=== PATIENT | female | born 1950 | race Caucasian/White ===

== ENCOUNTER 2021-08-16 06:37 | Day surgery (SDC) | payer MEDICARE, BC ==
[~2021-08-16] VITALS: Ht 165.1 cm; Wt 89.6 kg
[2021-08-16 07:20] VITALS: BP 116/49
[2021-08-16] MEDS ORDERED: normal saline 1000ml 1,000 ML IV PRN (07:20)
[2021-08-16 07:30] VITALS: BP 116/49
[2021-08-16] MEDS ORDERED: LISI10TA27 PO (07:58)
[2021-08-16] MEDS ORDERED: ATOR40TA72 PO (07:58)
[2021-08-16] MEDS ORDERED: METF-1203 PO (07:58)
[2021-08-16] MEDS ORDERED: GLIP10TA21 PO (07:58)
[2021-08-16] MEDS ORDERED: CARV3.1289 PO (07:58)
[2021-08-16] MEDS ORDERED: CLOP75TA34 PO (08:00)
[2021-08-16] MEDS ORDERED: ASPI-1265 PO (08:00)
[2021-08-16] MEDS ORDERED: MULT-1085 PO (08:01)
[2021-08-16] MEDS ORDERED: CYAN50003 PO (08:01)
[2021-08-16] MEDS ORDERED: BETA1TAB19 PO (08:02)
[2021-08-16] MEDS ORDERED: [UNRECOGNIZED DRUG - OTHER] (08:02)
[2021-08-16] MEDS ORDERED: CHOL100034 PO (08:03)
[2021-08-16] MEDS ORDERED: Garlic PO (08:04)
[2021-08-16] MEDS ORDERED: MAGN200T5 PO (08:04)
[2021-08-16] MEDS ORDERED: APIX2.5T PO (08:05)
[2021-08-16] MEDS ORDERED: PREN-75 PO (08:06)
[2021-08-16] MEDS ORDERED: LIDOcaine 1% 30ml preserv. free vial IJ STA (08:17)
[2021-08-16 08:18] LABS: BASOPHILS % (AUTO) 0.4 % (0-1); EOSINOPHILS # (AUTO) 0.3 X10'3 (0-0.9); EOSINOPHILS % (AUTO) 4.9 % (0-6); HEMATOCRIT 28.8 % (35.0-45.0); HEMOGLOBIN 9.7 g/dl (12.0-16.0); LYMPHOCYTES # (AUTO) 1.4 X10'3 (1.1-4.8); MEAN CORPUSCULAR HEMOGLOBIN 27.8 PG (27.0-31.0); MEAN CORPUSCULAR HGB CONC 33.7 g/dL (33.0-36.5); MEAN CORPUSCULAR VOLUME 82.5 FL (78-98); MEAN PLATELET VOLUME 9.2 FL (7.4-10.4); MONOCYTES # (AUTO) 0.5 X10'3 (0-0.9); MONOCYTES % (AUTO) 7.1 % (2-12); NEUTROPHILS # (AUTO) 4.9 X10'3 (1.8-7.7); NEUTROPHILS % (AUTO) 68.6 % (42-75); PLATELET COUNT 180 X10'3 (140-440); RED CELL DISTRIBUTION WIDTH 15.7 % (11.5-14.5); WHITE BLOOD COUNT 7.1 X10'3 (4.5-11.0)
[2021-08-16] MEDS ORDERED: Thrombin (Bovine) 5,000 unit vial TP ONE (08:20)
[2021-08-16 08:26] LABS: ANION GAP 8 (8-16); BLOOD UREA NITROGEN 18 MG/DL (7-18); BUN/CREATININE RATIO 19.4 (6.6-38.0); CALCIUM 9.4 MG/DL (8.5-10.1); CHLORIDE 104 MMOL/L (99-107); CREATININE 0.93 MG/DL (0.40-0.90); GLUCOSE 169 MG/DL (70-104); POTASSIUM 4.2 MMOL/L (3.5-5.1); SODIUM 139 MMOL/L (135-145); TOTAL CARBON DIOXIDE 26.7 MMOL/L (24-32); eGFR 60 ML/MIN
[2021-08-16] MEDS ORDERED: iohexol 300mg/ml 100ml inj. ONE (08:31)
[2021-08-16] MEDS ORDERED: heparin 1,000 UNITS/NS 500ml 500 ML ONE (08:31)
[2021-08-16] MEDS ORDERED: fentaNYL/PF 50MCG/1 ML 2ML syringe ONE (08:51)
[2021-08-16 09:30] VITALS: BP 124/57
[2021-08-16 09:45] VITALS: BP 116/49
[2021-08-16 10:00] VITALS: BP 125/52
== END 2021-08-16 10:30 | disposition home or self-care (01) ==
LOC: SSTAY O 06:37
PROVIDERS: ATTEND Radiology Vascular & Interventional Radiology
DX: I72.4 Aneurysm of artery of lower extremity (principal); Z20.822 Contact with and (suspected) exposure to COVID-19; Z79.01 Long term (current) use of anticoagulants; Z79.899 Other long term (current) drug therapy
CPT/HCPCS: 36002; 36415; 76942; 80048; 82948; 85025; 85610; 87635; 99152; 99153; C9803; J1644; J3010; Q9967